=== PATIENT | female | born 1975 | race Two or more races ===

== ENCOUNTER 2024-10-12 08:00 | Inpatient (IN) | payer OTHER ==
[2024-10-05 11:07] VITALS: BMI 28.3
[2024-10-12] MEDS ORDERED: BACITRACIN ZINC 15 GM TUBE TOPICAL OINTMENT ONE (11:18)
[2024-10-12] MEDS ORDERED: ROCURONIUM BROMIDE 50 MG/5 ML SYRINGE ONE (12:59)
[2024-10-12] MEDS ORDERED: SUCCINYLCHOLINE CHLORIDE 200 MG/10 ML SYRINGE ONE ×2 (12:59→13:32)
[2024-10-12] MEDS ORDERED: MIDAZOLAM HCL 2 MG/2 ML SINGLE DOSE VIAL ONE (12:59)
[2024-10-12] MEDS ORDERED: PROPOFOL 20 ML ONE ×2 (12:59→13:14)
[2024-10-12] MEDS ORDERED: HYDROmorphone HCl 2 MG/ML VIAL ONE (13:02)
[2024-10-12] MEDS: ceFAZolin SODIUM 1 GM VIAL IVPB ONE (13:10)
[2024-10-12] MEDS ORDERED: SUGAMMADEX SODIUM 200 MG/2 ML VIAL ONE (13:51)
[2024-10-12] MEDS: BUPIVACAINE HCL/PF 0.5% (5MG/ML) 10 ML VIAL IJ ONE (14:26)
[2024-10-12] MEDS ORDERED: ONDANSETRON 4 MG/2 ML VIAL IVPUSH PRN ×2 (14:57→21:00)
[2024-10-12] MEDS ORDERED: IBUPROFEN 600 MG TABLET (FP) PO PRN ×2 (15:14→21:12)
[2024-10-12] MEDS ORDERED: oxyCODONE HCL 5 MG TABLET PO PRN (15:14)
[2024-10-12] MEDS: ELECTROLYTE-148 SOLN 1,000 ML IV SCH (15:33)
[2024-10-12] MEDS: LACTATED RINGERS SOLUTION 1,000 ML IV SCH (15:41)
[2024-10-12] MEDS: IBUPROFEN 800 MG/8 ML IJ IVPB PRN (17:27)
[2024-10-12] MEDS: CEFAZOLIN 500 MG in DEXTROSE 5%-WATER - 50 ML IVPB SCH (18:07)
[2024-10-12] MEDS ORDERED: IBUPROFEN 800 MG/8 ML IJ IVPB PRN ×2 (18:25→21:10)
[2024-10-12 18:26] VITALS: RESP 18
[2024-10-12] MEDS: morphine SULFATE 4 MG/ML VIAL IVPUSH ONE (19:40)
[2024-10-12] MEDS: HYDROmorphone *PCA* 10MG/50ML DISP.SYRIN PCA SCH (20:47)
[2024-10-12] MEDS: ACETAMINOPHEN 1000 MG/100 ML BAG IVPB PRN (22:28)
[2024-10-13] MEDS: LEVOTHYROXINE NA 100 MCG TABLET (FP) PO SCH (06:31)
[2024-10-13 07:07] LABS: BASO % 0.2 % (0-2.0); HEMOGLOBIN 11.4 GM/dL (10.7-15.3); LYMPH % 9.6 % (8-40); MCH 29.5 pg (25.7-33.7); MCHC 33.5 g/dl (32.0-36.0); MEAN CELL VOLUME 88.2 fl (80-96); MEAN PLT VOLUME 7.9 fl (7.5-11.1); MONO % 6.7 % (3.8-10.2); NEUT % 83.5 % (42.8-82.8); PLATELET COUNT 319 10^3/uL (134-434); RBC 3.86 M/mm3 (3.60-5.2); RDW 14.4 % (11.6-15.6); WHITE BLOOD COUNT 11.7 K/mm3 (4.0-10.0)
[2024-10-13 07:29] LABS: POTASSIUM 4.3 mmol/L (3.5-5.1)
[2024-10-13 07:31] LABS: ALBUMIN 3.5 g/dl (3.4-5.0); CALCIUM 8.5 mg/dL (8.5-10.1)
[2024-10-13 07:32] LABS: BLOOD UREA NITROGEN 6.7 mg/dL (7-18)
[2024-10-13 07:35] LABS: CREATININE 0.7 mg/dL (0.55-1.3)
[2024-10-13 07:36] LABS: BILIRUBIN,TOTAL 0.8 mg/dL (0.2-1); TOT PROT 6.5 g/dl (6.4-8.2)
[2024-10-13 18:02] VITALS: BP 125/87; PULSE 92; TEMP 98.3
[2024-10-13] MEDS: oxyCODONE HCL 5 MG TABLET PO PRN (19:30)
[2024-10-13] MEDS: BISACODYL 10 MG SUPP.RECT PR PRN (19:30)
== END 2024-10-13 20:50 | disposition home or self-care (01) | DRG 743 ==
LOC: EDSTATUS 08:00 → J2C 11:04 → J3W 17:18
PROVIDERS: ADMIT Obstetrics & Gynecology; ATTEND Obstetrics & Gynecology
PROC: 0UB50ZZ Excision of Right Fallopian Tube, Open Approach (ICD-10-PCS; 2024-10-12)
PROC: 0UT90ZL Resection of Uterus, Supracervical, Open Approach (ICD-10-PCS; principal; 2024-10-12 11:00)
DX: D25.9 Leiomyoma of uterus, unspecified (principal); N94.10 Unspecified dyspareunia
CPT/HCPCS: 36415; 80053; 81025; 85025; 86850; 86900; 86901; 88307-TC; 94760; J0131